=== PATIENT | female | born 1970 | race Two or more races ===

== ENCOUNTER 2024-10-16 17:55 | Inpatient (IN) | payer MEDICAID, OTHER ==
[~2024-10-16] VITALS: Ht 162.6 cm; Wt 86.0 kg
[2024-10-16 18:29] LABS: Eosinophils # (auto) 0 10 ^3/uL (0-0.8); Lymphocytes # (auto) 0.8 10 ^3/uL (0.4-5.4); Nucleated Red Blood Cells % 0.1 %
[2024-10-16 18:30] LABS: Basophils # (auto) 0 10 ^3/uL (0-0.2); Basophils % (auto) 0.4 % (0.0-2.0); Hematocrit 13.4 % (36.0-46.0); Mean Corpuscular Hemoglobin 38.7 pg (28.0-32.0); Mean Corpuscular Hgb Conc. 32.7 g/dL (32.0-36.0); Mean Corpuscular Volume 118.4 fL (80.0-100.0); Monocytes # (auto) 0.6 10 ^3/uL (0-1.3); Monocytes % (auto) 5.3 % (0.0-12.0); Neutrophils # (auto) 10.4 10 ^3/uL (1.6-8.6); Neutrophils % (auto) 87.3 % (37.0-80.0); Platelet Count (auto) 282 10^3/uL (140-450); Red Blood Cells 1.13 10^6/uL (4.0-5.20)
[2024-10-16 18:32] LABS: Red Cell Distribution Width 24.1 % (11.8-14.3)
[2024-10-16 18:35] LABS: Hemoglobin 4.4 g/dL (12.2-16.2)
[2024-10-16 18:48] LABS: Anion Gap 12 (5-15); BUN/Creatinine Ratio 9.8 (10.0-20.0); Potassium 3.7 mmol/L (3.5-5.1); Sodium 138 mmol/L (136-145)
--- NOTE | 2024-10-16 18:48 | ED.PDOC ---
History of Present Illness HPI Comments 54-year-old female came to emergency room via EMS for generalized weakness. Patient has history of liver disease, and a chronic alcohol drinker. Per EMS, patient was picked up by the hotel room, patient for the past 2 weeks has been complaining of generalized weakness. Patient was admitted at [facility] from 10/06-02/2025, noted have hemoglobin levels of 5.0, underwent blood transfusion however patient signed AMA and was unable to complete the transfusions. Patient is still complaining of generalized weakness, abdominal pain, chest pain and shortness a breath. She denies any active bleeding. Upon arrival paramedics noted patient with a blood pressure of 87/45 mmHg. Fluids were given and was brought to the ER for further evaluation. Chief Complaint: General Weakness Time Seen by MD: 18:47 Reviewed Notes: Pipe Connector Notes Allergies: Coded Allergies: Penicillins (Verified Allergy, Unknown, 10/16/24) Uncoded Allergies: ANTIBIOTICS (Allergy, Unknown, 10/16/24) Information Source: Patient, Emergency Med Personnel Mode of Arrival: EMS Severity: Moderate Timing: Days Duration: Since onset Prehospital treatment: IVF Review of Systems REVIEW OF SYSTEMS: No fever, no chills, or fatigue HEENT: No sore throat, no earache, no congestion, no neck pain. Cardiac: (+) chest pain. No palpitations. Lungs: (+) shortness of breath, no cough. GI: No nausea, no vomiting, no diarrhea, no constipation, (+) abdominal pain : No dysuria, frequency, or urgency. No hematuria. Musculoskeletal: No joint pain , no joint swelling, no extremity edema. Skin: No rash, no itching. Neuro: No headache, no dizziness, (+) weakness Vital Signs Vital Signs Date Time Temp Pulse Resp B/P (MAP) Pulse Ox O2 Delivery O2 Flow Rate FiO2 10/16/24 20:55 98.0 87 22 91/59 98.0 10/16/24 20:05 100 Room Air* 0 21 Physical Exam General: Awake, alert and oriented. No acute distress. Appears lethargic Skin: Skin is jaundiced, pale HEENT: The head is normocephalic and atraumatic. Conjunctivae are clear without exudates or hemorrhage. Sclera icteric. EOM are intact. No signs of nystagmus. Eyelids are normal in appearance without swelling or lesions. Oral mucosa is pink and moist Neck: The neck is supple with normal range of motion. No JVD. Cardiac: Heart rate and rhythm are normal. No murmurs, gallops, or rubs are auscultated. Respiratory: No signs of respiratory distress. Lung sounds are clear in all lobes bilaterally without rales, ronchi, or wheezes. Abdominal: Abdomen is soft, generally tender without distention. Bowel sounds are present and normoactive in all four quadrants. Extremities: Upper and lower extremities are atraumatic in appearance without deformity or edema. Neurological: The patient is awake, alert and oriented to person, place, and time with normal speech. Speech is clear. There is no facial asymmetry. Past Medical History PAST MEDICAL HISTORY: Liver, [place] Past Medical History (Other): COVID-19 Surgical History (Other): Gastric bypass INTERNAL AUDIT DIRECTOR History: Denies all INTERNAL AUDIT DIRECTOR Hx Family History Family History: Reviewed,noncontributory to illness Social History Smoker: Non-Smoker Alcohol: Heavy Drugs: Denies Drug Use Lives In: Homeless Was a procedure done? Was a procedure done?: No EKG EKG : Pulse Rate (adult): 87 Cardiac Rhythm: NSR Differential Dx Considerations may include: Anemia, electrolyte imbalance, weakness, liver disease, jaundice, GI bleed, sepsis, hypotension X-Ray, Labs, Meds, VS Vital Signs Date Time Temp Pulse Resp B/P (MAP) Pulse Ox O2 Delivery O2 Flow Rate FiO2 10/16/24 20:55 98.0 87 22 91/59 98.0 10/16/24 20:39 88 10/16/24 20:38 97.9 89 19 88/58 97.9 10/16/24 20:05 88 30 100 Room Air* 0 21 10/16/24 20:03 97.9 88 30 72/36 (48) 100 97.9 10/16/24 19:36 94 10/16/24 18:48 87 10/16/24 18:34 97.6 95 20 110/88 (95) 100 10/16/24 18:27 87 Lab Test 10/16/24 21:23 10/16/24 19:55 10/16/24 19:17 10/16/24 18:16 Range/Units Lactic Acid Level 10.2 *H 9.8 *H 7.1 *H 0.4-2.0 mmol/L Troponin I High Sensitivity 4 5 5 </=34 ng/L White Blood Count 12.0 H 4.4-10.8 10^3/uL Red Blood Count 1.13 L 4.0-5.20 10^6/uL Hemoglobin 4.4 *L 12.2-16.2 g/dL Hematocrit 13.4 L 36.0-46.0 % Mean Corpuscular Volume 118.4 H 80.0-100.0 fL Mean Corpuscular Hemoglobin 38.7 H 28.0-32.0 pg Mean Corpuscular Hemoglobin Concent 32.7 32.0-36.0 g/dL Red Cell Distribution Width 24.1 H 11.8-14.3 % Platelet Count 282 140-450 10^3/uL Mean Platelet Volume 7.7 6.9-10.8 fL Neutrophils (%) (Auto) 87.3 H 37.0-80.0 % Lymphocytes (%) (Auto) 7.0 L 10.0-50.0 % Monocytes (%) (Auto) 5.3 0.0-12.0 % Eosinophils (%) (Auto) 0.0 0.0-7.0 % Basophils (%) (Auto) 0.4 0.0-2.0 % Neutrophils # (Auto) 10.4 H 1.6-8.6 10 ^3/uL Lymphocytes # (Auto) 0.8 0.4-5.4 10 ^3/uL Monocytes # (Auto) 0.6 0-1.3 10 ^3/uL Eosinophils # (Auto) 0 0-0.8 10 ^3/uL Basophils # (Auto) 0 0-0.2 10 ^3/uL Nucleated Red Blood Cells 0.1 % Prothrombin Time 17.7 H 9.3-11.8 sec Prothrombin Time INR 1.74 H 0.9-1.15 Sodium Level 138 136-145 mmol/L Potassium Level 3.7 3.5-5.1 mmol/L Chloride Level 112 H 98-107 mmol/L Carbon Dioxide Level 14 L 20-31 mmol/L Anion Gap 12 5-15 Blood Urea Nitrogen 9 9-23 mg/dL Creatinine 0.92 0.550-1.02 mg/dL Glomerular Filtration Rate Calc 74 >90 mL/min BUN/Creatinine Ratio 9.8 L 10.0-20.0 Serum Glucose 198 H 74-106 mg/dL Calcium Level 7.9 L 8.7-10.4 mg/dL Total Bilirubin 9.2 H 0.2-1.0 mg/dL Aspartate Amino Transferase (AST) 108 H 13-40 U/L Alanine Aminotransferase (ALT) 51 H 7-40 U/L Alkaline Phosphatase 122 H 46-116 U/L Ammonia 15 11-32 umol/L Total Protein 4.4 L 5.7-8.2 g/dL Albumin 1.8 L 3.2-4.8 g/dL Current Medications Medications (Trade) Dose Ordered Sig/Lizette Route Start Time Stop Time Status Last Admin Sodium Chloride 1,450 ml @ 1,450 mls/hr ONCE ONCE IV 10/16/24 19:45 10/16/24 20:44 DC 10/16/24 20:56 Dexamethasone Sodium Phosphate (Decadron Injection) 10 mg ONCE ONCE IV 10/16/24 19:45 10/16/24 20:01 DC 10/16/24 20:58 Vancomycin HCl 200 ml @ 200 mls/hr ONCE ONCE IV 10/16/24 20:03 10/16/24 21:02 DC 10/16/24 20:56 Time of 1ST Reevaluation: 18:41 Reevaluation 1ST: Unchanged Patient Education/Counseling: Diagnosis, Treatment Family Education/Counseling: No Family Present Departure 1 Departure Time of Disposition: 02:00 Impression: Primary Impression: Liver cirrhosis Additional Impressions: Lactic acidemia Hypotension Severe anemia Blood transfusion during current hospitalization Disposition: ADMITTED INPATIENT Condition: Guarded Comments 54-year-old female with history of liver cirrhosis, severe anemia presents to the emergency department with severe anemia after leaving [facility] few days ago, not completing treatment. This time patient is severely anemic with a hemoglobin of 4.4. Lactic acid is elevated and patient has white blood cell count of 12. Patient reports severe allergies to all antibiotics except for azithromycin. She states she either has hives, breathing trouble, rash. Vancomycin initiated with dose of Decadron. Blood transfusion initiated in the emergency department. Blood pressure improved. CT negative for acute process, shows ongoing ascites. Chest x-ray negative for acute process. Extensive evaluation was performed in attempt to identify or rule out: (See differential diagnosis section) The following tests were ordered, and results were reviewed by me: (See diagnostic results section) The following test were independently interpreted by me: N/A I reviewed and agreed with the following test results read by other providers: N/A I reviewed the following notes from the pt's past medical encounters: (None shekhar ilable at this time) Additional information was gathered from interviewing the following independent historians: EMS Discussion of management or test interpretation with external physician/other qualified health rn urgent care: Dr. Lomax Addressed an acute or chronic illness that poses a threat to life or bodily function: severe anemia requiring blood transfusion, severe hypotension Decision regarding hospitalization or escalation of hospital level of care: Risk and benefits of admission for further treatment of patient's condition was considered. Due to patient's current clinical condition, high risk of decline and poor outcome if discharged and need for further inpatient management and monitoring, patient will be admitted to the hospital. Drug therapy requiring intensive monitoring for toxicity: Blood products, IV Levophed Parenteral controlled substances: N/A Decision regarding elective major surgery with identified patient or procedure risk factors: N/A Decision regarding emergency major surgery: N/A Decision not to resuscitate or to de-escalate care because of poor prognosis: N/A Diagnosis or treatment significantly limited by social determinants of health: History of severe alcohol abuse Critical Care Note Critical Care Time?: Yes (30 min-critical care time only) Critical care comment: Due to a high probability of clinically significant, life threatening deterioration, the patient required my highest level of preparedness to intervene emergently and I personally spent this critical care time directly and personally managing the patient. This critical care time included obtaining a history; examining the patient; pulse oximetry; ordering and review of studies; arranging urgent treatment with development of a management plan; evaluation of patient's response to treatment; frequent reassessment; and, discussions with other providers. This critical care time was performed to assess and manage the high probability of imminent, life-threatening deterioration that could result in multi-organ failure. It was exclusive of separately billable procedures and treating other patients and teaching time. Please see my other sections and the rest of the note for further information on patient assessment and treatment. Stability Stability form required: No Heart Score Heart Score: Heart Score Response (Comments) Value History Moderate Suspicious 1 EKG Normal 0 Age 45-64 1 Risk Factors 1 or 2 risk factors 1 Troponin Normal limit 0 Total 3 I personally scribed for NOLAN ESCALONA MD ([email or web address]) on 10/16/24 at 18:48. Electronically submitted by Emanuel Barrientos ([facility]). NOLAN ESCALONA MD Oct 16, 2024 18:48
[2024-10-16 18:52] LABS: Alanine Aminotransferase 51 U/L (7-40); Albumin 1.8 g/dL (3.2-4.8); Alkaline Phosphatase 122 U/L (46-116); Aspartate Aminotransferase 108 U/L (13-40); Bilirubin, Total 9.2 mg/dL (0.2-1.0); Blood Urea Nitrogen 9 mg/dL (9-23); Calcium 7.9 mg/dL (8.7-10.4); Carbon Dioxide 14 mmol/L (20-31); Chloride 112 mmol/L (98-107); Glucose 198 mg/dL (74-106); Total Protein 4.4 g/dL (5.7-8.2)
[2024-10-16 18:57] LABS: INR 1.74 (0.9-1.15); Prothrombin Time 17.7 sec (9.3-11.8)
[2024-10-16 19:09] LABS: Lactic Acid w/Reflex 7.1 mmol/L (0.4-2.0)
[2024-10-16 20:05] VITALS: PULSE 88; RESP 30; O2SAT 100
[2024-10-16] MEDS ORDERED: NOREPINEPHRINE 8 MG/250ML KIT 250 ML IV SCH (20:15)
[2024-10-16] MEDS: NOREPINEPHRINE 8 MG/250ML KIT 250 ML IV ONE (20:18)
[2024-10-16 20:38] VITALS: BP 88/58; PULSE 89; RESP 19; TEMP 97.9
[2024-10-16 20:55] VITALS: BP 91/59; PULSE 87; RESP 22; TEMP 98
[2024-10-16] MEDS: VANCOMYCIN 1GM/250ML KIT 200 ML IV ONE (20:56)
[2024-10-16] MEDS: SODIUM CHLORIDE 0.9% 1,450 ML IV ONE (20:56)
[2024-10-16] MEDS: DexAMETHasone SOD PHOS 10MG/1ML VIAL INJ IV ONE (20:58)
[2024-10-16] MEDS ORDERED: MORPHINE SULFATE INJ 2 MG/ml SYRG IV PRN (21:30)
[2024-10-16] MEDS ORDERED: DOCUSATE SOD 100 MG CAP PO PRN (21:30)
[2024-10-16] MEDS ORDERED: IBUPROFEN 400 MG TAB PO PRN (21:30)
[2024-10-16] MEDS ORDERED: NITROGLYCERIN 0.4 MG SL TAB SL PRN (21:30)
--- NOTE | 2024-10-16 21:38 | DVHHP2 ---
History of Present Illness Reason for Visit: Severe anemia History of Present Illness The patient is a 54-year-old female with past medical history of liver cirrhosis, [place], and COVID-19 who presented to [facility] ED with complaint of generalized weakness. As reported, the patient was picked up in the hotel room after 2 weeks of complaining of generalized weakness, abdominal pain, associated nausea, vomiting. Patient was recently admitted at [facility], noted to have hemoglobin level of 5.0, underwent blood transfusion, but however left AMA and was unable to complete the transfusion process. The patient was seen and evaluated in the ED, laboratory data shows WBC 12.0, hemoglobin 4.4, hematocrit 18.4, platelets 282, sodium 138, potassium 3.7, BUN 9, creatinine 0.92, GFR 74, glucose 198, ammonia 15, protein 4.4, albumin 1.8, troponin 5, calcium 7.9, total bilirubin 9.2, AST 108, ALT 51, PT 17.7, INR 1.74, blood pressure 87/45 mmHg trending up to 91/59, heart rate 88, temperature 98.0 F, O2 saturation 99% on oxygen. Abdomen/pelvis CT revealing hepatic s teatosis, small amount of pneumobilia, small amount of ascites scattered throughout the abdomen and pelvis. Patient was started on IV antibiotic regimen vancomycin, please see medication orders section in the computer. On my assessment, patient denied chest pain, no headache, no dizziness, no diaphoresis, no abdominal pain, no diarrhea, no nausea, no vomiting, no fever, no chills. Patient was admitted for further evaluation and medical management. Past Medical History Liver cirrhosis, [place], COVID-19 Past Surgical History Gastric bypass Family History Reviewed, noncontributory to the management of this case. Past Social History The patient lives at home, denies smoking, alcohol or illicit drugs abuse. Review of Systems Constitutional: Yes: Weakness, Malaise, Other (Fatigue); No: Fever, Chills, Sweats Eyes: No: Pain, Vision change, Conjunctivae inflammation, Eyelid inflammation, Other, Redness ENT: No: Ear pain, Ear discharge, Nose pain, Nose discharge, Nose congestion, Mouth pain, Mouth swelling, Throat pain, Throat swelling, Other Respiratory: No: Cough, Dry, Shortness of breath, SOB with excertion, Wheezing, Hemoptysis, Pleuritic Pain, Sputum, Wheezing, Other Cardiovascular: No: Chest Pain, Palpitations, Orthopnea, Paroxysmal Noc. Dyspn ea, Edema, Lt Headedness, Other Gastrointestinal: Nausea, Vomiting, Abdominal Pain; No: Diarrhea, Constipation, Melena, Hematochezia, Other Genitourinary: No Dysuria, No Frequency, No Incontinence, No Hematuria, No Retention, No Other Musculoskeletal: No: other, neck pain, shoulder pain, arm pain, back pain, hand pain, leg pain, foot pain Skin: No: Rash, Lesions, Jaundice, Bruising, Other Neurological: Weakness; No: Numbness, Incoordination, Change in speech, Confusion, Seizures, Other Allergies: Coded Allergies: Penicillins (Verified Allergy, Unknown, 10/16/24) Uncoded Allergies: ANTIBIOTICS (Allergy, Unknown, 10/16/24) Medications Current Medications Medications Dose Ordered Sig/Lizette Route Start Time Stop Time Status Last Admin Dose Admin Vancomycin HCl 200 ml @ 200 mls/hr Q12HR IV 10/16/24 22:00 UNV Exam Vital Signs Vital Signs Date Time Temp Pulse Resp B/P (MAP) Pulse Ox O2 Delivery O2 Flow Rate FiO2 10/16/24 20:55 98.0 87 22 91/59 98.0 10/16/24 18:34 100 General Appearance: Alert, Oriented X3, Cooperative, No acute distress HEENT: Atraumatic, PERRLA, EOMI, Mucous membr. moist/pink Respiratory: Normal air movement, Other (Diminished breath sounds) Cardiovascular: Regular rate, Normal S1, Normal S2, No murmurs Abdominal: Normal bowel sounds, Soft, No hepatospenomegaly, No masses, Other (Reports tenderness) Extremities: No clubbing, No cyanosis, No edema, Normal pulses, No tenderness/swelling Skin: No rashes, No breakdown, No significant lesion Neuro: Normal speech, Normal tone, Sensation intact, Cranial nerves 3-12 NL, Reflexes 2+, Other (Generalized weakness) Psych/Mental Status: Mental status NL, Mood NL Labs/Xrays Labs Test 10/16/24 21:23 10/16/24 18:16 Range/Units White Blood Count 12.0 H 4.4-10.8 10^3/uL Red Blood Count 1.13 L 4.0-5.20 10^6/uL Hemoglobin 4.4 *L 12.2-16.2 g/dL Hematocrit 13.4 L 36.0-46.0 % Mean Corpuscular Volume 118.4 H 80.0-100.0 fL Mean Corpuscular Hemoglobin 38.7 H 28.0-32.0 pg Mean Corpuscular Hemoglobin Concent 32.7 32.0-36.0 g/dL Red Cell Distribution Width 24.1 H 11.8-14.3 % Platelet Count 282 140-450 10^3/uL Mean Platelet Volume 7.7 6.9-10.8 fL Neutrophils (%) (Auto) 87.3 H 37.0-80.0 % Lymphocytes (%) (Auto) 7.0 L 10.0-50.0 % Monocytes (%) (Auto) 5.3 0.0-12.0 % Eosinophils (%) (Auto) 0.0 0.0-7.0 % Basophils (%) (Auto) 0.4 0.0-2.0 % Neutrophils # (Auto) 10.4 H 1.6-8.6 10 ^3/uL Lymphocytes # (Auto) 0.8 0.4-5.4 10 ^3/uL Monocytes # (Auto) 0.6 0-1.3 10 ^3/uL Eosinophils # (Auto) 0 0-0.8 10 ^3/uL Basophils # (Auto) 0 0-0.2 10 ^3/uL Nucleated Red Blood Cells 0.1 % Prothrombin Time 17.7 H 9.3-11.8 sec Prothrombin Time INR 1.74 H 0.9-1.15 Sodium Level 138 136-145 mmol/L Potassium Level 3.7 3.5-5.1 mmol/L Chloride Level 112 H 98-107 mmol/L Carbon Dioxide Level 14 L 20-31 mmol/L Anion Gap 12 5-15 Blood Urea Nitrogen 9 9-23 mg/dL Creatinine 0.92 0.550-1.02 mg/dL Glomerular Filtration Rate Calc 74 >90 mL/min BUN/Creatinine Ratio 9.8 L 10.0-20.0 Serum Glucose 198 H 74-106 mg/dL Calcium Level 7.9 L 8.7-10.4 mg/dL Total Bilirubin 9.2 H 0.2-1.0 mg/dL Aspartate Amino Transferase (AST) 108 H 13-40 U/L Alanine Aminotransferase (ALT) 51 H 7-40 U/L Alkaline Phosphatase 122 H 46-116 U/L Ammonia 15 11-32 umol/L Total Protein 4.4 L 5.7-8.2 g/dL Albumin 1.8 L 3.2-4.8 g/dL PATIENT: KARIN COWANCCT: [id number] UNIT: [id number] : 1970 LOC: TELE ROOM / BED: [address] [place] [address] AGE / SEX: 54 / F ADM STATUS: ADM IN SERVICE 1827 ORDERING PHYSICIAN: NOLAN ESCALONA MD PROCEDURE(s): ABPL - CT AB PEL WO CON-NO ORAL OR IV REASON: abdominal pain, jaundice, hx of liver cirrhosis ORDER NUMBER(s): [id number], ACCESSION NUMBER(s): [id number] Exam: CT CT AB PEL WO CON-NO ORAL OR IV History: abdominal pain, jaundice, hx of liver cirrhosis Comparison Study: None available at time of dictation. TECHNIQUE: Multidetector CT of the abdomen was performed from lung bases to pubic symphysis. Imaging was performed without IV contrast. Axial, coronal and sagittal multiplanar reformats were obtained from the axial data set by the technologist. Radiation Dose Information: CT Dose: CTDI volume is 13.45 mGy. Dose-length product is 824.26 mGy*cm FINDINGS: Evaluation of solid organs is limited due to lack of intravenous contrast use. Findings: Lung Bases: No acute or significant lung base finding. Normal heart size. No pleural or pericardial effusion. Liver: Hepatic steatosis. Hepatomegaly with the liver measuring 24 cm in length. Gallbladder and Biliary Tree: Gallbladder is been surgically removed. Spleen: Unremarkable Pancreas: The pancreas is grossly normal in appearance. Adrenal Glands: Unremarkable Kidneys: Kidneys are grossly normal without calculi or hydronephrosis. Bladder: Grossly unremarkable for degree of distention. Bowel: The stomach is grossly normal in appearance. Small hiatal hernia. Small bowel and colon are normal in caliber and distribution. The appendix is not visualized; however, no secondary findings of acute appendicitis identified. Ascites: Small amount of ascites. Lymphadenopathy: No mesenteric, retroperitoneal or periportal lymphadenopathy. Abdominal Wall and Mesentery: Unremarkable. Vasculature: The visualized abdominal aorta is normal in size and caliber. Evaluation of abdominal and pelvic vessels is limited due to lack of intravenous contrast. Pelvic Organs: Unremarkable Musculoskeletal: No aggressive focal bony lesions, acute fractures or dislocation. Left femoral prosthesis in place Soft tissues: Unremarkable IMPRESSION: 1. Hepatic steatosis 2. Gallbladder has been surgically removed. 3. Small amount of pneumobilia. 4. Small amount of ascites scattered throughout the abdomen and pelvis. ORDERING PHYSICIAN: JAMES DAMON MD PROCEDURE(s): CXRP - CHEST PORTABLE REASON: CP ORDER NUMBER(s): [id number], ACCESSION NUMBER(s): [id number] CHEST RADIOGRAPH Indication: CP Technique: Single frontal view of the chest was obtained COMPARISON: None FINDINGS: Lines and Tubes: None Lungs: Clear Pleura: No effusion. No pneumothorax. Cardiomediastinal contours: Unremarkable Bones: Unremarkable IMPRESSION: 1. No acute disease. Assessment/Plan Assessment/Plan Liver cirrhosis Hyperglycemia Sepsis, unspecified organism Severe anemia Generalized weakness Electrolyte imbalance Blood transfusion during current hospitalization Plan 1. Admit to intensive care unit 2. Breathing treatment 3. Pain control management 4. IV antibiotic management 5. Management of fluids and electrolytes 6. Consultation for Cardiology/GI 7. Diagnostic test abdomen/pelvis CT 8. DVT prophylaxis-on SCDs 9. Repeat labs CBC, CMP in a.m. 10. Home medication reviewed and reconciled 11. Continue with current medical management 12. Treatment plan discussed with patient and RN. Patient verbalized understanding. Plan discussed with: Patient, Other (RN) Problem List: (1) Liver cirrhosis (2) Severe anemia (3) Hyperglycemia (4) Sepsis, unspecified organism (5) Electrolyte imbalance (6) Generalized weakness (7) Blood transfusion during current hospitalization Date of Service: Oct 16, 2024 Billing Provider: HERBERTH LANE DNP Common Visit Codes: [id number] INP/OBS CARE (HIGH) HERBERTH LANE DNP Oct 16, 2024 21:38
[2024-10-16] MEDS: LACTULOSE 20Gm/30ML SOLN PO SCH (22:00)
[2024-10-16] MEDS ORDERED: VANCOMYCIN 1GM/250ML KIT 200 ML IV SCH (22:00)
[2024-10-16] MEDS: ACCU-CHEK COMFORT CURVE STRIP VI SCH (22:00)
[2024-10-16] MEDS: InsuLIN REG 1unit/0.01ml Soln (100units/ml) SC SCH (22:00)
[2024-10-16] MEDS: PANTOPRAZOLE 40 MG/10 ML VIAL INJ IV SCH (22:00)
[2024-10-16 22:03] LABS: Lactic Acid w/Reflex 10.2 mmol/L (0.4-2.0)
[2024-10-16] MEDS: ALBUMIN 25% 100 ML IV ONE (22:05)
--- NOTE | 2024-10-16 22:14 | DVH ---
CHEST RADIOGRAPH Indication: CP Technique: Single frontal view of the chest was obtained COMPARISON: None FINDINGS: Lines and Tubes: None Lungs: Clear Pleura: No effusion. No pneumothorax. Cardiomediastinal contours: Unremarkable Bones: Unremarkable IMPRESSION: 1. No acute disease.
--- NOTE | 2024-10-16 22:20 | DVH ---
Exam: CT CT AB PEL WO CON-NO ORAL OR IV History: abdominal pain, jaundice, hx of liver cirrhosis Comparison Study: None available at time of dictation. TECHNIQUE: Multidetector CT of the abdomen was performed from lung bases to pubic symphysis. Imaging was performed without IV contrast. Axial, coronal and sagittal multiplanar reformats were obtained fr om the axial data set by the technologist. Radiation Dose Information: CT Dose: CTDI volume is 13.45 mGy. Dose-length product is 824.26 mGy*cm FINDINGS: Evaluation of solid organs is limited due to lack of intravenous contrast use. Findings: Lung Bases: No acute or significant lung base finding. Normal heart size. No pleural or pericardial effusion. Liver: Hepatic steatosis. Hepatomegaly with the liver measuring 24 cm in length. Gallbladder and Biliary Tree: Gallbladder is been surgically removed. Spleen: Unremarkable Pancreas: The pancreas is grossly normal in appearance. Adrenal Glands: Unremarkable Kidneys: Kidneys are grossly normal without calculi or hydronephrosis. Bladder: Grossly unremarkable for degree of distention. Bowel: The stomach is grossly normal in appearance. Small hiatal hernia. Small bowel and colon are no rmal in caliber and distribution. The appendix is not visualized; however, no secondary findings of acute appendicitis identified. Ascites: Small amount of ascites. Lymphadenopathy: No mesenteric, retroperitoneal or periportal lymphadenopathy. Abdominal Wall and Mesentery: Unremarkable. Vasculature: The visualized abdominal aorta is normal in size and caliber. Evaluation of abdominal a nd pelvic vessels is limited due to lack of intravenous contrast. Pelvic Organs: Unremarkable Musculoskeletal: No aggressive focal bony lesions, acute fractures or dislocation. Left femoral prost hesis in place Soft tissues: Unremarkable IMPRESSION: 1. Hepatic steatosis 2. Gallbladder has been surgically removed. 3. Small amount of pneumobilia. 4. Small amount of ascites scattered throughout the abdomen and pelvis. Radiation optimization: All CT scans at this facility use at least one of these dose optimization te chniques: automated exposure control mA and/or kV adjustment per patient size (includes targeted exa ms where dose is matched to clinical indication) or iterative reconstruction.
[2024-10-16 22:53] VITALS: BP 105/68; PULSE 93; RESP 21; TEMP 97
[2024-10-16 23:15] VITALS: BP 101/57; PULSE 94; RESP 33; TEMP 97.1
[2024-10-16] MEDS: SODIUM CHLORIDE 0.9% 1,000 ML IV SCH (23:23)
[2024-10-16] MEDS: ONDANSETRON HCL 4 MG/2 ML VIAL IV PRN (23:47)
[2024-10-17] VITALS (81 sets, daily range): BP systolic 62–205; BP diastolic 21–177; PULSE 74–111; RESP 11–30; TEMP 89–98.1; O2SAT 30–100
[2024-10-17] MEDS: HYDROcodone-ACET 5/325MG TAB PO PRN (00:21)
[2024-10-17] MEDS: MORPHINE SULFATE INJ 2 MG/ml SYRG IV PRN (01:55)
[2024-10-17] MEDS ORDERED: ALBUTEROL SULF 2.5 MG/0.5ML(0.5%) NEB SOLN NEB PRN (02:00)
[2024-10-17] MEDS ORDERED: IPRATROPIUM BROM 0.5 MG/2.5ML INH SOL NEB PRN (02:00)
[2024-10-17] MEDS: ALBUTEROL SULF 2.5 MG/0.5ML(0.5%) NEB SOLN ONE (02:20)
[2024-10-17] MEDS: IPRATROPIUM BROM 0.5 MG/2.5ML INH SOL ONE (02:20)
[2024-10-17] MEDS: SODIUM BICARB 8.4% 50Meq/50ml SYR Vial IV ONE ×4 (03:12→23:29)
[2024-10-17 04:35] LABS: Basophils % (auto) 0.3 % (0.0-2.0); Eosinophils # (auto) 0 10 ^3/uL (0-0.8); Eosinophils % (auto) 0.1 % (0.0-7.0); Hematocrit 16.6 % (36.0-46.0); Lymphocytes # (auto) 1.5 10 ^3/uL (0.4-5.4); Monocytes # (auto) 0.8 10 ^3/uL (0-1.3); White Blood Cell 14.8 10^3/uL (4.4-10.8)
[2024-10-17 04:38] LABS: Basophils # (auto) 0.1 10 ^3/uL (0-0.2); Lymphocytes % (auto) 10.2 % (10.0-50.0); Mean Corpuscular Hemoglobin 33.9 pg (28.0-32.0); Mean Corpuscular Hgb Conc. 33.1 g/dL (32.0-36.0); Mean Corpuscular Volume 102.4 fL (80.0-100.0); Monocytes % (auto) 5.7 % (0.0-12.0); Neutrophils # (auto) 12.4 10 ^3/uL (1.6-8.6); Neutrophils % (auto) 83.7 % (37.0-80.0); Platelet Count (auto) 184 10^3/uL (140-450); Red Blood Cells 1.62 10^6/uL (4.0-5.20); Red Cell Distribution Width 19.2 % (11.8-14.3)
[2024-10-17] MEDS: NOREPINEPHRINE 8 MG/250ML KIT 250 ML IV SCH (04:42)
[2024-10-17 04:48] LABS: Hemoglobin 5.5 g/dL (12.2-16.2)
[2024-10-17 04:51] LABS: Alkaline Phosphatase 78 U/L (46-116); Anion Gap 23.00001 (5-15); Blood Urea Nitrogen 10 mg/dL (9-23); Potassium 3.9 mmol/L (3.5-5.1)
[2024-10-17 04:53] LABS: BUN/Creatinine Ratio 8.7 (10.0-20.0)
[2024-10-17 04:55] LABS: Alanine Aminotransferase 61 U/L (7-40); Albumin 1.8 g/dL (3.2-4.8); Aspartate Aminotransferase 230 U/L (13-40); Bilirubin, Total 9.9 mg/dL (0.2-1.0); Calcium 8.5 mg/dL (8.7-10.4); Chloride 112 mmol/L (98-107); Glucose 176 mg/dL (74-106); Sodium 145 mmol/L (136-145); Total Protein 3.8 g/dL (5.7-8.2)
[2024-10-17] MEDS ORDERED: NOREPINEPHRINE 8 MG/250ML KIT 250 ML IV SCH (05:00)
[2024-10-17 05:53] LABS: Carbon Dioxide < 10 mmol/L (20-31)
[2024-10-17 06:57] LABS: Macrocytosis Slight; Platelet Estimate Adequate
[2024-10-17] MEDS: DexAMETHasone SOD PHOS 10MG/1ML VIAL INJ IV SCH (10:00)
[2024-10-17] MEDS ORDERED: levoFLOXacin 500MG 100 ML IV SCH (10:00)
[2024-10-17] MEDS: EPINEPHrine HCL 1 MG/10 ML SYRG ONE (10:14)
[2024-10-17] MEDS: ETOMIDATE (2MG/ML) 20ML VIAL IV ONE ×2 (10:40→11:03)
[2024-10-17] MEDS: ROCURONIUM 10MG/ML 10ML VIAL IV ONE ×2 (10:42→11:04)
[2024-10-17] MEDS: EPINEPHrine HCL 1 MG/10 ML SYRG IV ONE (10:45)
[2024-10-17] MEDS: fentaNYL Drip 2500mCg/250mlNS 250 ML IV ONE (10:51)
--- NOTE | 2024-10-17 11:44 | DVH ---
CHEST RADIOGRAPH Indication: POST INTUBATION Technique: Single frontal view of the chest was obtained COMPARISON: XY CHEST PORTABLE on DOS: 10/16/24 FINDINGS: Lines and Tubes: Endotracheal tube in satisfactory position. Lungs: Low lung volumes. Bibasilar subsegmental atelectasis. Pleura: No effusion. No pneumothorax. Cardiomediastinal contours: Cardiomegaly Bones: Unremarkable IMPRESSION: Endotracheal tube in satisfactory position.
[2024-10-17] MEDS: fentaNYL Drip 2500mCg/250mlNS 250 ML IV SCH (12:19)
[2024-10-17] MEDS: VASOPRESSIN 20 UNITS in SODIUM CHL 0.9% 99 ML IV SCH (12:54)
[2024-10-17] MEDS: SODIUM CHLORIDE 0.9% 1,000 ML IV ONE (13:00)
[2024-10-17] MEDS ORDERED: VANCOMYCIN PER PHARMACY 0 MG IV SCH (13:00)
[2024-10-17 13:36] LABS: Base Excess -26.8 mmol/L (-2.0-3.0)
--- NOTE | 2024-10-17 13:42 | DVHNC2 ---
Arterial Puncture Indication: Assess ventilatory status, Assess acid-base status Procedure: Sterile Preparation, Arterial Punct Obtained Location: Left Radial Notes LEFT Radial ARTERIAL LINE PLACEMENT Recorder of insertion practice: Methane Gas Collection System Operator Occupation of operations associate: Other (Resident physician) Indication: Hypotension Room prepared for procedure: Yes Methane Gas Collection System Operator performed hand hygien: Yes Maximal sterile barrier precau: Mask/Eye shield, Sterile gown, Cap, Sterlie gloves, Large sterlie drape Skin Preparation: Chlorhexidine gluconate Skin preparation completely dr: Yes Arterial line site: Left Radial PROCEDURE SUMMARY: A time out was performed. hands were washed immediately prior to the procedure. we wore a surgical cap, mask with protective eyewear, sterile gown and sterile gloves throughout the procedure. Right groin was prepped using chlorhexidine scrub and draped in sterile fashion using sterile towels. The left radial artery was identified through the ultrasound. With the help of ultrasound, a radial catheter needle was inserted into the radial artery, which was visualized on ultrasound. Arterial blood was seen in the radial catheter. needle was kept in place and The guidewire was advanced easily into the Left radial artery. radial artery catheter was disconnected and was then advanced over the wire and wire were withdrawn. Catheter was then connected to the the tubing. The catheter was sutured in place. A sterile dressing was placed over the catheter at the insertion site. At the time of procedure completion, the cathet er was connected to the cafeteria monitor and calibrated. Appropriate waveform and blood pressure tracing was observed. Romaine Morejon Resident Danette Todd MD Intubation Indication: Respiratory Insufficiency (increased work of breathing) Prep: Preoxygenation Pretreated with: Other (Etomidate, rocuronium) Intubation Approach: Orotracheal Intubation size: cm (7.5) Notes Endotracheal Intubation Procedure Note INDICATION: Tachypnea, respiratory failure PROCEDURE SUMMARY: A time out was performed. My hands were washed immediately prior to the procedure. I wore a surgical cap, mask with protective eyewear, gown and gloves throughout the procedure. The patient was placed on a cafeteria monitor including continuous pulse oximetry. Rapid Sequence Intubation was conducted. The patient received etomidate for induction and rocuronium for adequate paralysis. Cricoid pressure was maintained from time induction agent was given to time of cuff balloon inflation. Using a video laryngoscope and an endotracheal tube with stylet, the patient was intubated on the first attempt. The stylet was removed and cuff balloon was inflated. Appropriate endotracheal tube position was confirmed by direct visualization of vocal cord passage, fogging of the tube, CO2 colormetric indicator and symmetric breath sounds. Post intubation chest x- ray is pending at this time. Romaine Morejon Resident Danette Todd MD Date of Service: Oct 17, 2024 Billing Provider: DANETTE TODD MD Common Visit Codes: PROCEDURE ONLY Procedure Codes: 32310-BQPKTASPCJ, [id number] LINE ROMAINE MOREJON Oct 17, 2024 13:42
[2024-10-17 14:05] LABS: Hematocrit 20.4 % (36.0-46.0)
[2024-10-17 14:06] LABS: Mean Corpuscular Hemoglobin 32.3 pg (28.0-32.0); Mean Corpuscular Hgb Conc. 31.9 g/dL (32.0-36.0); Mean Corpuscular Volume 101.4 fL (80.0-100.0); Platelet Count (auto) 179 10^3/uL (140-450); Red Blood Cells 2.01 10^6/uL (4.0-5.20); Red Cell Distribution Width 16.1 % (11.8-14.3); White Blood Cell 25.1 10^3/uL (4.4-10.8)
[2024-10-17] MEDS: HYDROCORTISONE SOD SUCC 100 MG/2ML INJ VIAL IV ONE (14:06)
[2024-10-17] MEDS: MEROPENEM 1GM IVPB 50 ML IV SCH (14:24)
[2024-10-17 14:35] LABS: Hemoglobin 6.5 g/dL (12.2-16.2)
[2024-10-17 14:36] LABS: Basophils % (manual) 0 (0.0-2.0); Blast Cells 0; Eosinophils % (manual) 0 (0-7); Metamyelocytes % 0; Myelocytes % 0; Promyelocytes % 0; Reactive Lymphocytes 0
--- NOTE | 2024-10-17 14:45 | DVHINCON2 ---
Date of service: Oct 17, 2024 Referring Physician Reason for Consultation Liver cirrhosis end-stage renal failure and severe transaminitis severe anemia possible GI bleed History of Present Illness This 53-year-old female with a history of liver cirrhosis from alcoholic liver disease COVID-19 presented to emergency room with complaints of severe weakness and tiredness had some associated nausea vomiting and even some hematemesis. She was found to have a hemoglobin of 5 g in [facility] recently had underwent blood transfusion but left AMA without completing the transfusion In the ER here the hemoglobin was found to be 4.4 with bilirubin of 9.2 and enzymes all increased. Patient is intubated now and getting the IV line abdomen and pelvis CT shows hepatic steatosis and ascites with possible mild anasarca. Patient has been on antibiotic treatment for possible SBP Patient also has got history of gastric bypass. Since intubated patient unable to get the details except from the the medical record Past Medical History Liver cirrhosis SD COVID-19 alcoholic liver disease Past Surgical History Gastric bypass Family History Noncontributory Social History Unable to get details Allergies: Coded Allergies: Penicillins (Verified Allergy, Unknown, 10/16/24) Uncoded Allergies: ANTIBIOTICS (Allergy, Unknown, 10/16/24) Current Medications Current Medications Medications (Trade) Dose Ordered Sig/Lizette Route PRN Reason Start Time Stop Time Status Last Admin Vancomycin HCl 200 ml @ 200 mls/hr Q12HR IV 10/16/24 22:00 10/17/24 13:19 DC Norepinephrine Bitartrate 250 ml @ 3.75 mls/hr Q24H IV 10/16/24 20:15 10/16/24 21:37 DC Lactulose 30 ml BID PO 10/16/24 22:00 10/16/24 22:00 Ibuprofen (Motrin Tablet) 400 mg Q6HP PRN PO PAIN SCALE 1-3 OR TEMP>100.4 10/16/24 21:30 Dexamethasone Sodium Phosphate (Decadron Injection) 6 mg DAILY IV 10/17/24 10:00 Hold Levofloxacin/ Dextrose 100 ml @ 100 mls/hr DAILY IV 10/17/24 10:00 Hold Pantoprazole Sodium (Protonix) 40 mg BID IV 10/16/24 22:00 10/17/24 13:50 Diagnostic Test (Pha) (Accu-Chek Comfort Curve T) 1 strip ACHS 10/16/24 22:00 10/17/24 13:50 Insulin Human Regular (InsuLIN R) ACHS SC 10/16/24 22:00 10/16/24 22:00 Dextrose 50 ml UD PRN IV Blood Sugar LESS THAN 60 10/16/24 21:30 Sodium Chloride 1,000 ml @ 60 mls/hr [id number] IV 10/16/24 21:30 10/16/24 23:23 Acetaminophen/ Hydrocodone Bitart ([place] 5/325MG Tab) 1 tab Q4HP PRN PO MODERATE PAIN (4-6 PAIN SCALE) 10/16/24 21:30 Ondansetron HCl (Zofran) 4 mg Q4HP PRN IV NAUSEA / VOMITING 10/16/24 21:30 10/16/24 23:47 Docusate Sodium (Colace Capsule) 100 mg BIDPRN PRN PO FOR CONSTIPATION 10/16/24 21:30 Nitroglycerin (Ntrostat Sublingual) 0.4 mg Q5MINP PRN SL FOR CHEST PAIN 10/16/24 21:30 Morphine Sulfate 2 mg Q30M PRN IV FOR CHEST PAIN 10/16/24 21:30 Morphine Sulfate 1 mg Q4HP PRN IV SEVERE PAIN (7-10 PAIN SCALE) 10/17/24 01:45 10/17/24 01:55 Albuterol (Ventolin Medneb) 2.5 mg Q4HPRN PRN NEB SHORTNESS OF BREATH 10/17/24 02:00 Ipratropium [place] (Atrovent Medneb) 0.5 mg Q4HPRN PRN NEB SHORTNESS OF BREATH 10/17/24 02:00 Norepinephrine Bitartrate 250 ml @ 3.75 mls/hr Q24H IV 10/17/24 04:45 10/17/24 12:33 DC 10/17/24 12:02 Norepinephrine Bitartrate 250 ml @ 3.75 mls/hr Q24H IV 10/17/24 05:00 10/17/24 04:52 DC Vasopressin 20 units/Sodium Chloride 100 ml @ 9 mls/hr Q11H7M IV 10/17/24 11:45 10/17/24 12:54 Fentanyl Citrate 250 ml @ 2.5 mls/hr Q24H IV 10/17/24 12:15 10/17/24 12:19 Hydrocortisone Sodium Succinate (Solu-CORTEF INJECTION) 50 mg Q6HR IV 10/17/24 18:00 Norepinephrine Bitartrate 32 mg/ Sodium Chloride 250 ml @ 0.938 mls/ hr Q24H IV 10/17/24 12:15 Octreotide Acetate 500 mcg/ Sodium Chloride 100 ml @ 10 mls/hr Q10H IV 10/17/24 13:00 Meropenem 50 ml @ 17 mls/hr Q8HR IV 10/17/24 14:00 10/17/24 14:24 Vancomycin HCl 0 ml @ 0 mls/hr UD IV 10/17/24 13:00 Vital Signs Vital Signs Date Time Temp Pulse Resp B/P (MAP) Pulse Ox O2 Delivery O2 Flow Rate FiO2 10/17/24 13:43 94 24 118/76 (90) 100 30 10/17/24 12:00 98.1 98.1 10/17/24 05:34 Nasal Cannula 6.0 Physical Exam Originally built and nourished female who looks icteric and is intubated and unresponsive on vasopressors as well as octreotide drip and PPIs She looks extremely pale and icteric Lungs clear Cardiovascular tachycardic Abdomen soft but fullness no rigidity no guarding Extremities edema Patient is intubated now and unresponsive Labs/Diagnostic Data Labs Test 10/17/24 13:54 10/17/24 13:15 10/17/24 12:06 10/17/24 03:59 Range/Units POC Glucose 67 L 70-106 mg/dl White Blood Count 25.1 #H 4.4-10.8 10^3/uL Red Blood Count 2.01 L 4.0-5.20 10^6/uL Hemoglobin 6.5 #*L 12.2-16.2 g/dL Hematocrit 20.4 #L 36.0-46.0 % Mean Corpuscular Volume 101.4 H 80.0-100.0 fL Mean Corpuscular Hemoglobin 32.3 H 28.0-32.0 pg Mean Corpuscular Hemoglobin Concent 31.9 L 32.0-36.0 g/dL Red Cell Distribution Width 16.1 H 11.8-14.3 % Platelet Count 179 140-450 10^3/uL Mean Platelet Volume 8.4 6.9-10.8 fL Neutrophils (%) (Auto) 37.0-80.0 % Lymphocytes (%) (Auto) 10.0-50.0 % Monocytes (%) (Auto) 0.0-12.0 % Basophils (%) (Auto) 0.0-2.0 % Neutrophils # (Auto) 1.6-8.6 10 ^3/uL Lymphocytes # (Auto) 0.4-5.4 10 ^3/uL Monocytes # (Auto) 0-1.3 10 ^3/uL Blood Gas Specimen Type Arterial Blood Gas Sample Site Left radial Blood Gas Patient Temperature 37.0 Arterial Blood Date Drawn [id number] Arterial Blood pH 6.874 *L 7.350-7.450 Arterial Blood Partial Pressure CO2 26.6 L 32.0-45.0 mmHg Arterial Blood Partial Pressure O2 302.8 *H 83.0-108.0 mmHg Arterial Blood HCO3 4.8 L 21.0-28.0 mmol/L Arterial Blood Oxygen Saturation 99.3 H 94.0-98.0 % Arterial Blood Base Excess -26.8 L -2.0-3.0 mmol/L Arterial Blood Oxyhemoglobin 97.8 94.0-98.0 % Arterial Blood Carboxyhemoglobin 0.5 0.5-1.5 % Arterial Blood Methemoglobin 1.0 0.0-1.5 % [place] Test Modified Blood Gas Total Hemoglobin 8.50 L 12.0-16.0 g/dL Blood Gas Set Respiration Rate 16.0 Blood Gas Modality Vent - ac FiO2 % 100.0 Blood Gas Tidal Volume 450.0 Blood Gas PEEP or CPAP 5.0 Blood Gas Critical Value Read Back Yes Blood Gas Notified Whom Rula elaine md Blood Gas Notified Time [id number] Blood Gas Notified By [employer] Worker alicja carrera Eosinophils (%) (Auto) 0.1 0.0-7.0 % Eosinophils # (Auto) 0 0-0.8 10 ^3/uL Basophils # (Auto) 0.1 0-0.2 10 ^3/uL Nucleated Red Blood Cells 0.0 % Macrocytosis Slight [place] Cells Moderate Test 10/17/24 02:16 10/17/24 01:12 10/16/24 21:23 10/16/24 18:16 Range/Units Hemoglobin A1c < 3.8 <5.7 % A1C Stool Occult Blood Sample #3 Negative Negative Troponin I High Sensitivity 4 </=34 ng/L Prothrombin Time 17.7 H 9.3-11.8 sec Prothrombin Time INR 1.74 H 0.9-1.15 Ammonia 15 11-32 umol/L Assessment [age]-year-old with end-stage liver disease with cirrhosis SD history of GI bleeding possibly with severe anemia hemoglobin was 5 refused transfusion in [facility] came here with a low hemoglobin of 4.4 patient is intubated now with nausea vomiting as well as hemato possibly hematemesis. Hemoglobin is 6.6 times is extremely icteric bilirubin of 9.9 liver enzymes arehigh WBCs [id number] Clinical impression Stage liver disease with GI bleeding possible varices status post gastric bypass with severe anemia and hyperbilirubinemia with transaminitis Patient is status post gastric bypass Possible GI bleeding from varices to be considered Possible end-stage liver disease Possible sepsis possible SBP Possible hepatic failure Plan/Recommendation We will treat with octreotide and PPIs and antibiotics Follow LFTs closely Ammonia level Treat conservatively Patient is too sick for any interventions at this time Overall prognosis extremely guarded Thank you Dr. Gonzalez Plan discussed with: Other YANET GONZALEZ MD Oct 17, 2024 14:45
[2024-10-17 14:49] LABS: Alkaline Phosphatase 80 U/L (46-116); Anion Gap 27.00001 (5-15); Blood Urea Nitrogen 11 mg/dL (9-23); Glucose 79 mg/dL (74-106); Potassium 4.4 mmol/L (3.5-5.1)
[2024-10-17 14:55] LABS: Anisocytosis Slight; Band Neutrophils % (manual) 8; Chloride 114 mmol/L (98-107); Lymphocytes % (manual) 14 (10.0-50.0); Macrocytosis Slight; Monocytes % (manual) 4 (0-12); Sodium 151 mmol/L (136-145)
[2024-10-17 14:56] LABS: Alanine Aminotransferase 207 U/L (7-40); Albumin 1.7 g/dL (3.2-4.8); Bilirubin, Total 10.6 mg/dL (0.2-1.0); Calcium 8.2 mg/dL (8.7-10.4); Carbon Dioxide < 10 mmol/L (20-31); Creatine Kinase IFCC 653 U/L (34-145); Platelet Estimate Adequate; Total Protein 3.7 g/dL (5.7-8.2)
[2024-10-17] MEDS: OCTREOTIDE ACETATE 500 MCG in SODIUM CHL 0.9% 99 ML IV SCH (14:56)
[2024-10-17] MEDS ORDERED: VANCOMYCIN 1GM/250ML KIT 250 ML IV SCH (15:00)
[2024-10-17 15:04] LABS: Aspartate Aminotransferase 1169 U/L (13-40)
[2024-10-17] MEDS: DEXTROSE (50%) 50ML SYRG IV PRN (15:14)
[2024-10-17] MEDS: SODIUM BICARB 50mEq/50ml Vial 150 ML in D5W 5% 1,000 ML IV SCH ×2 (16:15→21:19)
[2024-10-17] MEDS: NOREPINEPHRINE BITARTRATE 32 MG in SODIUM CHL 0.9% 218 ML IV SCH (16:19)
[2024-10-17 16:21] LABS: BUN/Creatinine Ratio 7.7 (10.0-20.0)
[2024-10-17 16:39] LABS: Base Excess -23.1 mmol/L (-2.0-3.0)
--- NOTE | 2024-10-17 16:41 | DVH ---
CHEST RADIOGRAPH Indication: NASOGASTRIC TUBE PLACEMENT Technique: Single frontal view of the chest was obtained Comparison: XY CHEST XRAY 1 VIEW on DOS: 10/17/24, XY CHEST PORTABLE on DOS: 10/16/24 FINDINGS: Lines and Tubes: Endotracheal tube in place 4.3 cm above the misael. Right internal jugular catheter in place in superior vena cava. Lungs: No focal consolidation. Pleura: No effusion. No pneumothorax. Cardiomediastinal contours: Unremarkable Bones: No acute osseous abnormality. IMPRESSION: 1. Enteric tube 2. Right internal jugular catheter in the superior vena cava. 3. Enteric tube noted in the lower thoracic region but not visible below the diaphragm despite alteri ng windows recommend KUB. 4. Poor inspiratory effort with elevation of both diaphragms
[2024-10-17 16:54] LABS: Lactic Acid w/Reflex 15.5 mmol/L (0.4-2.0)
[2024-10-17 17:39] LABS: Potassium 4.5 mmol/L (3.5-5.1)
[2024-10-17 17:40] LABS: Anion Gap 25.00001 (5-15); Chloride 115 mmol/L (98-107); Sodium 150 mmol/L (136-145)
[2024-10-17 17:42] LABS: Calcium 7.8 mg/dL (8.7-10.4); Carbon Dioxide < 10 mmol/L (20-31)
[2024-10-17 17:45] LABS: Blood Urea Nitrogen 12 mg/dL (9-23)
[2024-10-17 17:49] LABS: Glucose 176 mg/dL (74-106)
[2024-10-17] MEDS: VANCOMYCIN 1.25GM/250ML 250 ML IV SCH (17:58)
[2024-10-17] MEDS: HYDROCORTISONE SOD SUCC 100 MG/2ML INJ VIAL IV SCH (17:58)
[2024-10-17 18:36] LABS: BUN/Creatinine Ratio 8.7 (10.0-20.0)
--- NOTE | 2024-10-17 19:09 | DVHPN2 ---
Assessment/Plan Assessment/Plan ICU progress note 54 yo F with cirrhosis recently AMA after found to have anemia. Today Hb 4.4. On my assessment patient with waxing and waning mental status, increased WOB with respiratory muscle use, severe lactic acidosis on increasing pressor support. Patient was intubated for acute hypoxic respiratory failure in the setting of shock, right IJ TLC placed, L radial a line placed. PAdded vasopressin and stress dose steroid, crystalloid resuscitation and transfusion of PRBC. Antibiotic escalated to meropenem and vancomycin. Placed on mechanical ventilator. I have discussion with patient and with brother regarding goals of care. No hematemesis Physical exam Intubated, sedated and mechanically ventilated S1 S2 RRR no murmur Mechanical breath sounds Abdomen soft Trace LE edema LYNN with crusting blood and dark colored stool Labs Hb 4.4 - 5 Lactic acid 7 -> 12 ABG 7.24/19/150 AST ALT trending up Bilirubin 9 Na 151 Cr 1.4 FOBT negative? 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 Continue with mechanical ventilation c/w sedation, keep raas -2 maintain MAP > 65 on levo and vaso stress dose steroid maintain Hb >7 transfuse if necessary FFP after 4 units if requiring more PRBC D5W and bicarb drip at 100cc/hr aggressive fluid resus ISS NPO for now vancomycin and meropenem octreotide and protonix drip panculture GI consult appreciated echo iso shock strict I/O keep K >4 Ph >3 Mg >2 diet hold dvt ppx hold GI ppx protonix prognosis poor condition critical code status full code 120 minutes critical care time excluding POC ultrasound and procedures Plan discussed with: Other My Orders Orders - DANETTE TODD MD Procedure Category Date Status Time Ventilator Orders RT 10/17/24 Transmitted 11:05 Respiratory Culture MEAGAN 10/17/24 In Process W/ Gs 11:05 Abg W/ Co-Ox RT 10/17/24 Logged 12:00 Sodium Chl 0.9% PHA 10/17/24 In Process (So... W/Vasopressin 11:45 Fentanyl Drip PHA 10/17/24 In Process 2500mcg/250mlns 12:15 Rass Sedation Scale RENEE 10/17/24 In Process 12:03 Hydrocortisone PHA 10/17/24 In Process Succinate Inj 18:00 Sodium Chl 0.9% PHA 10/17/24 In Process (Ns... 12:15 Blood Culture MEAGAN 10/17/24 In Process 12:24 Urine Bacterial MEAGAN 10/17/24 In Process Culture 12:24 Insert Rubalcava Catheter RENEE 10/17/24 In Process 12:26 Meropenem 1gm Ivpb PHA 10/17/24 In Process (Merrem 1gm/ Ns) 14:00 Vancomycin Per PHA 10/17/24 In Process Pharmacy 13:00 Vancomycin Per RENEE 10/17/24 In Process Pharmacy Protoc 14:48 D5w 5% (Dextrose 5%) PHA 10/17/24 In Process W/Sodium Bicarb 50m 15:15 Creatinine LAB 10/18/24 Verified 05:00 Vancomycin PHA 10/17/24 In Process 1.25gm/250ml 15:00 Chest Portable XY 10/17/24 Resulted 15:45 Abg W/ Co-Ox RT 10/17/24 Logged 16:24 *Consult CONS 10/17/24 Transmitted / 16:26 Sodium Chloride 0.9% PHA 10/17/24 In Process 18:00 Communication Order ORDERS 10/17/24 Transmitted 18:10 Echo 2d Mode Cardiac US 10/17/24 Transmitted DOP 18:51 Date of Service: Oct 17, 2024 Billing Provider: DANETTE TODD MD Common Visit Codes: 20539-[id number] CARE 30-74 MIN, 41905-[id number] CARE-EACH +30MIN DANETTE TODD MD Oct 17, 2024 19:09
--- NOTE | 2024-10-17 19:11 | DVHNC2 ---
Central Line Recorder of insertion practice: Belt Builder Occupation of inspector publications: Attending Physician Indication: Hypotension Belt Builder performed hand hygien: Yes Maximal sterile barrier precau: Mask/Eye shield, Sterile gown, Cap, Sterlie gloves, Large sterlie drape Skin Preparation: Chlorhexidine gluconate Skin preparation completely dr: Yes Insertion site: Right, Internal jugular Central line catheter type: [id number] dialysis Number of lumens: 3 Post Assessment: Chest X-Ray, Proper placement, No Pneumothorax Date of Service: Oct 17, 2024 Billing Provider: DANETTE TODD MD Cardiology Common Codes: PROCEDURE ONLY DANETTE TODD MD Oct 17, 2024 19:11
[2024-10-17] MEDS: SODIUM CHLORIDE 0.9% 500 ML IV ONE (19:45)
[2024-10-17 19:54] LABS: Base Excess -22.2 mmol/L (-2.0-3.0)
[2024-10-17] MEDS: PHENYLEPHRINE INJ 80 MG in SODIUM CHL 0.9% 242 ML IV SCH (21:19)
[2024-10-17] MEDS: VASOPRESSIN 20 UNIT/ML ONE (21:52)
[2024-10-17 22:32] LABS: Hemoglobin 8.6 g/dL (12.2-16.2)
[2024-10-17 22:33] LABS: Hematocrit 26.7 % (36.0-46.0); Mean Corpuscular Hemoglobin 32.7 pg (28.0-32.0); Mean Corpuscular Hgb Conc. 32.2 g/dL (32.0-36.0); Mean Corpuscular Volume 101.6 fL (80.0-100.0); Platelet Count (auto) 184 10^3/uL (140-450); Red Blood Cells 2.63 10^6/uL (4.0-5.20); Red Cell Distribution Width 16.2 % (11.8-14.3); White Blood Cell 29.8 10^3/uL (4.4-10.8)
[2024-10-17 22:47] LABS: Basophils % (manual) 0 (0.0-2.0); Blast Cells 0; Eosinophils % (manual) 0 (0-7); Myelocytes % 0; Promyelocytes % 0; Reactive Lymphocytes 0
--- NOTE | 2024-10-17 22:47 | DVHINCON2 ---
Date of service: Oct 17, 2024 Referring Physician David Elaine MD Reason for Consultation Vent management History of Present Illness A 54-year-old woman with past medical history of liver cirrhosis, [place], and COVID- 19 who presented to ED on 10/16/24 with complaint of generalized weakness. Shira zarate reported 2 weeks of generalized weakness, abdominal pain, associated nausea and vomiting. Patient was recently admitted at [facility], noted to have hemoglobin of 5.0, underwent blood transfusion; however, left AMA and was unable to complete the transfusion process. The patient was seen and evaluated in the ED. Laboratory data shows WBC 12.0, hemoglobin 4.4, hematocrit 18.4, platelets 282, sodium 138, potassium 3.7, BUN 9, creatinine 0.92, GFR 74, glucose 198, ammonia 15, protein 4.4, albumin 1.8, troponin 5, calcium 7.9, total bilirubin 9.2. AST 108, ALT 51. PT 17.7, INR 1.74. Blood pressure of 87/45 mmHg, trending up to 91/59, heart rate 88, temperature 98.0 F, O2 saturation 99% on oxygen. Abdomen/pelvis CT revealing hepatic steatosis, small amount of pneumobilia, small amount of ascites scattered throughout the abdomen and pelvis. Patient was admitted for further care and pulmonary consultation is requested for evaluation and management of acute hypoxic respiratory failure requiring mechanical vent. Review of Systems: 14-point review of systems negative unless otherwise noted above. Past Medical History: liver cirrhosis, [place], and COVID-19 Past Surgical History: gastric bypass Medications: Reviewed. Allergies: Penicillins Antibiotics* Family History: No family history of premature CAD. No family history of lung disorders. Social History: Nonsmoker. No alcohol or illicit drug use. Allergies: Coded Allergies: Penicillins (Verified Allergy, Unknown, 10/16/24) Uncoded Allergies: ANTIBIOTICS (Allergy, Unknown, 10/16/24) Current Medications Current Medications Medications (Trade) Dose Ordered Sig/Lizette Route PRN Reason Start Time Stop Time Status Last Admin Dexamethasone Sodium Phosphate (Decadron Injection) 6 mg DAILY IV 10/17/24 10:00 10/17/24 16:29 DC Levofloxacin/ Dextrose 100 ml @ 100 mls/hr DAILY IV 10/17/24 10:00 Hold Morphine Sulfate 1 mg Q4HP PRN IV SEVERE PAIN (7-10 PAIN SCALE) 1/12/25 01:45 10/17/24 16:29 DC 10/17/24 01:55 Albuterol (Ventolin Medneb) 2.5 mg Q4HPRN PRN NEB SHORTNESS OF BREATH 10/17/24 02:00 Ipratropium [place] (Atrovent Medneb) 0.5 mg Q4HPRN PRN NEB SHORTNESS OF BREATH 10/17/24 02:00 Norepinephrine Bitartrate 250 ml @ 3.75 mls/hr Q24H IV 10/17/24 04:45 10/17/24 12:33 DC 10/17/24 12:02 Norepinephrine Bitartrate 250 ml @ 3.75 mls/hr Q24H IV 10/17/24 05:00 10/17/24 04:52 DC Vasopressin 20 units/Sodium Chloride 100 ml @ 9 mls/hr Q11H7M IV 10/17/24 11:45 10/17/24 21:51 Fentanyl Citrate 250 ml @ 2.5 mls/hr Q24H IV 10/17/24 12:15 10/17/24 12:19 Hydrocortisone Sodium Succinate (Solu-CORTEF INJECTION) 50 mg Q6HR IV 10/17/24 18:00 10/17/24 17:58 Norepinephrine Bitartrate 32 mg/ Sodium Chloride 250 ml @ 0.938 mls/ hr Q24H IV 10/17/24 12:15 10/17/24 16:19 Octreotide Acetate 500 mcg/ Sodium Chloride 100 ml @ 10 mls/hr Q10H IV 10/17/24 13:00 10/17/24 14:56 Meropenem 50 ml @ 17 mls/hr Q8HR IV 10/17/24 14:00 10/17/24 22:27 Vancomycin HCl 0 ml @ 0 mls/hr UD IV 10/17/24 13:00 Vancomycin HCl 250 ml @ 250 mls/hr DAILY IV 10/17/24 15:00 10/17/24 15:13 DC Sodium Bicarbonate 150 ml/Dextrose 1,150 ml @ 100 mls/hr [id number] IV 10/17/24 15:15 10/17/24 21:02 DC 10/17/24 16:15 Vancomycin HCl 250 ml @ 250 mls/hr DAILY@1500 IV 10/17/24 15:00 10/17/24 17:58 Sodium Bicarbonate 150 ml/Dextrose 1,150 ml @ 200 mls/hr Q5H45M IV 10/17/24 21:00 10/17/24 21:19 Phenylephrine HCl 80 mg/Sodium Chloride 250 ml @ 7.5 mls/hr Q24H IV 10/17/24 21:15 10/17/24 21:19 Vital Signs Vital Signs Date Time Temp Pulse Resp B/P (MAP) Pulse Ox O2 Delivery O2 Flow Rate FiO2 10/17/24 22:00 95.0 111 26 142/39 (73) 97 203.0 90/63 (72) 10/17/24 22:00 30 10/17/24 05:34 Nasal Cannula 6.0 Physical Exam Gen.: Patient lying in bed in medical ICU. Sedated, intubated on mechanical ventilator. Head: Normocephalic, atraumatic. Eyes: PERRLA. Ears: Normal external anatomy. Throat: Endotracheal tube and orogastric tube in place. Neck: Supple, trachea midline. Chest: Transmitted breath sounds bilaterally. Decreased air entry bilaterally. No wheezing. Bibasilar crackles. Cardiovascular: Positive S1, positive S2. Regular rate and rhythm. Abdomen: Positive bowel sounds in all 4 quadrants. Soft, nontender, nondistended. : Rubalcava in place. Normal external genitalia. Rectal: Deferred. Skin: Warm, dry. Intact. Extremities: 2+ radial pulses bilaterally. No lower extremity edema. Neuro: Sedated. Labs/Diagnostic Data Labs Test 10/17/24 22:30 10/17/24 20:18 10/17/24 19:24 10/17/24 17:00 Range/Units White Blood Count 29.8 H 4.4-10.8 10^3/uL Red Blood Count 2.63 L 4.0-5.20 10^6/uL Hemoglobin 8.6 #L 12.2-16.2 g/dL Hematocrit 26.7 #L 36.0-46.0 % Mean Corpuscular Volume 101.6 H 80.0-100.0 fL Mean Corpuscular Hemoglobin 32.7 H 28.0-32.0 pg Mean Corpuscular Hemoglobin Concent 32.2 32.0-36.0 g/dL Red Cell Distribution Width 16.2 H 11.8-14.3 % Platelet Count 184 140-450 10^3/uL Mean Platelet Volume 8.9 6.9-10.8 fL Neutrophils (%) (Auto) 37.0-80.0 % Lymphocytes (%) (Auto) 10.0-50.0 % Monocytes (%) (Auto) 0.0-12.0 % Basophils (%) (Auto) 0.0-2.0 % Neutrophils # (Auto) 1.6-8.6 10 ^3/uL Lymphocytes # (Auto) 0.4-5.4 10 ^3/uL Monocytes # (Auto) 0-1.3 10 ^3/uL Blood Gas Specimen Type Arterial Blood Gas Sample Site Arterial line Blood Gas Patient Temperature 37.0 Arterial Blood Date Drawn Arterial Blood pH 7.041 *L 7.350-7.450 Arterial Blood Partial Pressure CO2 25.4 L 32.0-45.0 mmHg Arterial Blood Partial Pressure O2 96.3 83.0-108.0 mmHg Arterial Blood HCO3 6.7 L 21.0-28.0 mmol/L Arterial Blood Oxygen Saturation 94.8 94.0-98.0 % Arterial Blood Base Excess -22.2 L -2.0-3.0 mmol/L Arterial Blood Oxyhemoglobin 93.3 L 94.0-98.0 % Arterial Blood Carboxyhemoglobin 0.6 0.5-1.5 % Arterial Blood Methemoglobin 1.0 0.0-1.5 % [place] Test N/a Blood Gas Total Hemoglobin 9.00 L 12.0-16.0 g/dL Blood Gas Set Respiration Rate 24.0 Blood Gas Modality Vent - ac Blood Gas Spontaneous Rate 24 FiO2 % 30.0 Blood Gas Tidal Volume 450.0 Blood Gas Spontaneous Tidal Volume 465 Blood Gas Inspiratory Pressure 20.0 Blood Gas PEEP or CPAP 5.0 Bl Gas Inspiratory/Expiratory Ratio 1:2.0 Specimen Drawn By Lloyd becerra pneumatic tool operator Blood Gas Critical Value Read Back Yes Blood Gas Notified Whom Dr. gelacio elaine Blood Gas Notified Time [id number] Blood Gas Notified By Lloyd becerra rcp Sodium Level 150 H 136-145 mmol/L Potassium Level 4.5 3.5-5.1 mmol/L Chloride Level 115 H 98-107 mmol/L Carbon Dioxide Level < 10 *L 20-31 mmol/L Anion Gap 25.75307 H 5-15 Blood Urea Nitrogen 12 9-23 mg/dL Creatinine 1.38 H 0.550-1.02 mg/dL Glomerular Filtration Rate Calc 45 >90 mL/min BUN/Creatinine Ratio 8.7 L 10.0-20.0 Serum Glucose 176 H 74-106 mg/dL Lactic Acid Level 15.5 *H 0.4-2.0 mmol/L Calcium Level 7.8 L 8.7-10.4 mg/dL Test 10/17/24 13:15 10/17/24 03:59 10/17/24 02:16 10/17/24 01:12 Range/Units Anisocytosis (manual) Slight Macrocytosis Slight [place] Cells Few Total Bilirubin 10.6 H 0.2-1.0 mg/dL Aspartate Amino Transferase (AST) 1169 H 13-40 U/L Alanine Aminotransferase (ALT) 207 H 7-40 U/L Alkaline Phosphatase 80 46-116 U/L Creatine Kinase 653 H 34-145 U/L Total Protein 3.7 L 5.7-8.2 g/dL Albumin 1.7 L 3.2-4.8 g/dL Eosinophils (%) (Auto) 0.1 0.0-7.0 % Eosinophils # (Auto) 0 0-0.8 10 ^3/uL Basophils # (Auto) 0.1 0-0.2 10 ^3/uL Nucleated Red Blood Cells 0.0 % Hemoglobin A1c < 3.8 <5.7 % A1C Stool Occult Blood Sample #3 Negative Negative Test 10/16/24 21:23 10/16/24 18:16 Range/Units Troponin I High Sensitivity 4 </=34 ng/L Prothrombin Time 17.7 H 9.3-11.8 sec Prothrombin Time INR 1.74 H 0.9-1.15 Ammonia 15 11-32 umol/L Microbiology Date/Time Source Procedure Growth Status 10/16/24 19:55 Blood Blood Culture - Preliminary NO GROWTH AFTER 24 HOURS OF INCUBATION. 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 Plan: s/p intubation on mechanical ventilator. CXR image and report reviewed. Devices in place. Low lung volumes. Bibasilar subsegmental atelectasis.. ABG reviewed, notable for acidemia. On AC mode; RR 24, VT 450, PEEP 5, FiO2 30% Titrate FIO2 to keep O2 saturation above 90%. VAP bundle. Daily ABG and CXR while intubated Sedate for ventilator synchrony - On Fentanyl Bicarb drip. Continue antibiotics. F/u cultures. On multiple pressors for hemodynamic support Titrate to keep mean arterial pressure greater than 65 mmHg. Monitor renal function Monitor electrolytes. Supplement as necessary. Monitor ins and outs. GI prophylaxis - Protonix DVT prophylaxis. Prognosis: Poor given patient's multiple co-morbidities. Condition: Critical Rest of plan per hospitalist and other consultants. A total of 35 minutes of critical care time was spent reviewing the patient record, examining the patient, making a diagnostic and therapeutic plan, discussing this plan with the medical personnel, following up on diagnostic studies and following the patient for clinical stability excluding any and all procedures. At least 50% of this time was spent in direct, [id number] contact. Thank you, Dr. Elaine, for allowing me to participate in this patient's care. Further recommendations will depend on the patient's clinical course. Please do not hesitate to contact me if you have any questions or concerns. This medical document was created using an electronic medical record system with [employer] dictation system. Although these documentations are being carefully reviewed, there may still be some phonetic and typographical changes. The errors are purely typographical, due to imperfection on the software program, and do not reflect any compromise in the patient's medical care. Plan discussed with: Other (RN/MD Elaine) MILAGROS CRUZ MD Oct 17, 2024 22:47
[2024-10-17 23:15] LABS: Band Neutrophils % (manual) 22; Lymphocytes % (manual) 11 (10.0-50.0); Macrocytosis Slight; Metamyelocytes % 3; Monocytes % (manual) 10 (0-12); Platelet Estimate Adequate
[2024-10-17] MEDS: ALBUMIN 5% 250 ML IV ONE ×2 (23:35→23:39)
[2024-10-17] MEDS: EPINEPHrine HCL 250 ML IV SCH (23:37)
[2024-10-17] MEDS: EPINEPHrine HCL 250 ML IV ONE (23:38)
[2024-10-17] MEDS: SODIUM BICARB 8.4% 50Meq/50ml SYR INJ ONE (23:38)
[2024-10-17] MEDS: ALBUMIN 25% 100 ML IV ONE (23:38)
[2024-10-18] VITALS (105 sets, daily range): BP systolic 30–138; BP diastolic 18–70; PULSE 33–120; RESP 0–34; TEMP 95.9–99.3; O2SAT 30–100
[2024-10-18] MEDS: OCTREOTIDE ACETATE 100 MCG/ML VL ONE (00:02)
[2024-10-18 00:16] LABS: Base Excess -21.1 mmol/L (-2.0-3.0)
[2024-10-18] MEDS: SODIUM BICARB 8.4% 50Meq/50ml SYR Vial IV ONE ×3 (00:40→09:08)
[2024-10-18] MEDS: SODIUM CHLORIDE 0.9% 500 ML IV ONE (01:15)
[2024-10-18 04:32] LABS: Hemoglobin 7.5 g/dL (12.2-16.2); Platelet Count (auto) 176 10^3/uL (140-450)
[2024-10-18 04:38] LABS: Hematocrit 23.9 % (36.0-46.0); Mean Corpuscular Hemoglobin 32.4 pg (28.0-32.0); Mean Corpuscular Hgb Conc. 31.3 g/dL (32.0-36.0); Mean Corpuscular Volume 103.4 fL (80.0-100.0); Red Blood Cells 2.31 10^6/uL (4.0-5.20); Red Cell Distribution Width 16.1 % (11.8-14.3)
[2024-10-18 04:40] LABS: Alkaline Phosphatase 97 U/L (46-116); Anion Gap 32.00001 (5-15); Blood Urea Nitrogen 15 mg/dL (9-23); Magnesium 2.2 mg/dL (1.6-2.6); Potassium 4.2 mmol/L (3.5-5.1)
[2024-10-18 04:57] LABS: BUN/Creatinine Ratio 8.5 (10.0-20.0)
[2024-10-18 05:02] LABS: Carbon Dioxide < 10 mmol/L (20-31); Chloride 110 mmol/L (98-107); Glucose 226 mg/dL (74-106); Sodium 152 mmol/L (136-145)
[2024-10-18 05:03] LABS: Alanine Aminotransferase 751 U/L (7-40); Albumin 1.9 g/dL (3.2-4.8); Bilirubin, Total 12.3 mg/dL (0.2-1.0); Calcium 7.4 mg/dL (8.7-10.4); Phosphorus 10.3 mg/dL (2.4-5.1); Total Protein 3.7 g/dL (5.7-8.2)
[2024-10-18 05:04] LABS: White Blood Cell 30.1 10^3/uL (4.4-10.8)
[2024-10-18 05:06] LABS: Basophils % (manual) 0 (0.0-2.0); Blast Cells 0; Eosinophils % (manual) 0 (0-7); Metamyelocytes % 0; Myelocytes % 0; Promyelocytes % 0; Reactive Lymphocytes 0
--- NOTE | 2024-10-18 05:28 | DVH ---
CHEST RADIOGRAPH Indication: ACUTE RESP FAILURE Technique: Single frontal view of the chest was obtained Comparison: XY CHEST PORTABLE on DOS: 10/17/24 FINDINGS: Lines and Tubes: The endotracheal tube terminates 2.9 cm above the misael. Right central venous francisco ter terminates superior vena cava. The enteric tube courses through a hiatal hernia and terminates in the region of the gastroesophageal junction. Lungs: Left basilar atelectasis. Right lung is clear. Pleura: No effusion. No pneumothorax. Cardiomediastinal contours: Unremarkable Bones: No acute osseous abnormality. IMPRESSION: 1. Enteric tube terminates in the GE junction. Advancement is recommended. 2. Left basilar atelectasis.
[2024-10-18 05:33] LABS: Aspartate Aminotransferase 4609 U/L (13-40)
[2024-10-18 06:01] LABS: Lactic Acid w/Reflex 26.1 mmol/L (0.4-2.0)
[2024-10-18 07:25] LABS: Band Neutrophils % (manual) 7; Lymphocytes % (manual) 16 (10.0-50.0); Monocytes % (manual) 4 (0-12)
[2024-10-18 07:26] LABS: Macrocytosis Slight
[2024-10-18 07:31] LABS: Platelet Estimate Adequate
[2024-10-18 08:20] LABS: Base Excess -23.5 mmol/L (-2.0-3.0)
[2024-10-18] MEDS: LACTATED RINGER'S 1,000 ML IV ONE ×2 (09:13→12:00)
--- NOTE | 2024-10-18 10:20 | DVH ---
CHEST RADIOGRAPH Indication: S/P CODE BLUE INTUBATION Technique: Single frontal view of the chest was obtained COMPARISON: XY CHEST XRAY 1 VIEW on DOS: 10/18/24, XY CHEST PORTABLE on DOS: 10/17/24, XY CHEST XRAY 1 VIEW on DOS: 10/17/24, XY CHEST PORTABLE on DOS: 10/16/24 FINDINGS: Lines and Tubes: Endotracheal tube and enteric catheter in satisfactory position. Right central venou s catheter in satisfactory position. Lungs: Low lung volumes. Pleura: No effusion. No pneumothorax. Cardiomediastinal contours: Unremarkable Bones: Unremarkable IMPRESSION: Lines and tubes in satisfactory position.
[2024-10-18 10:37] LABS: Base Excess -17.1 mmol/L (-2.0-3.0)
--- NOTE | 2024-10-18 10:38 | RESUS ---
JI ELY ASSESSSMENT History of Events History of Events: Patient currently ICU admit on ventalitor Primary RN reports change in arterial line waveform, no palpable pulse detected with PEA noted on bedside profile mill operator tape control CODE BLUE called and CPR initiated Initial Information Date: Oct 18, 2024 Time: 09:41 Location of Arrest: ICU ([place]) Arrest Witnessed: Yes CPR started initial time: 09:41 CPR started by whom: Hospital Staff Type of arrest: Cardiac Spontaneous Respirations: No Pulse Present: No Crash Cart Opened and Supplies: Yes Airway Ventilation Breathing at Onset: Assisted Oxygen Delivery Method: Mechanical Ventilator Artificial Ventilation: Bag/Endo tube Comments: patient intubated prior to code Circulation Circulation : Time: 09:43 Pulse Rate (adult): 110 Blood Pressure Systolic: 135 Blood Pressure Diastolic: 78 Medications & Response Medications and Responses #1: Medication Time: 09:42 ADULT Medications Given ADULT: Epinephrine 1 mg Route of Administration: IV EKG Rhythm: PEA Medications and Responses #2: Medication Time: 09:44 ADULT Medications Given ADULT: Sodium Bacarbinate 50 meq Route of Administration: IV EKG Rhythm: Sinus Tachycardia Blood Pressure Systolic: 135 Blood Pressure Diastolic: 78 Respiratory Rate: 16 O2 Sat by Pulse Oximetry: 96 Procedure - Central Venous Cat Comment: placed prior to code Nurses Notes [place] Coma Scale Eye Opening: None (1) Chris Coma Scale Verbal: None (1) Chris Coma Scale Motor: None (1) Pupil Reaction: Sluggish Bedside Blood Glucose: 188 EKG Rhythm: Sinus Tachycardia Time Code Ended Time Code Ended: 09:43 Post Arrest Status: Ventilated Outcome of code: Successful Code Team Present: Dr Bishnu Carroll EMT student RT Angie Baeza ROSC Time of ROSC: 09:43 Felisha Orourke Oct 18, 2024 10:38
[2024-10-18 10:42] LABS: Basophils # (auto) 0.1 10 ^3/uL (0-0.2)
[2024-10-18 10:50] LABS: Basophils % (auto) 0.4 % (0.0-2.0); Eosinophils # (auto) 0 10 ^3/uL (0-0.8); Eosinophils % (auto) 0.1 % (0.0-7.0); Hematocrit 18.2 % (36.0-46.0); Lymphocytes # (auto) 1.9 10 ^3/uL (0.4-5.4); Lymphocytes % (auto) 8.7 % (10.0-50.0); Mean Corpuscular Hemoglobin 33.3 pg (28.0-32.0); Mean Corpuscular Hgb Conc. 32.9 g/dL (32.0-36.0); Mean Corpuscular Volume 101.3 fL (80.0-100.0); Monocytes # (auto) 1.3 10 ^3/uL (0-1.3); Monocytes % (auto) 5.7 % (0.0-12.0); Neutrophils # (auto) 19.1 10 ^3/uL (1.6-8.6); Neutrophils % (auto) 85.1 % (37.0-80.0); Platelet Count (auto) 135 10^3/uL (140-450); Red Cell Distribution Width 16.8 % (11.8-14.3); White Blood Cell 22.4 10^3/uL (4.4-10.8)
--- NOTE | 2024-10-18 10:55 | ECG ---
[facility] [place] Test Date: 2024-10-16 Test Time: 19:36:27 Pat Name: VALENTINO COWAN Department: ER Room: [address] [place] [address] A Gender: F Manager Education: ASA : 1970 Requested By: ALMA VILLEGAS Order Number: [id number] Reading MD: Brad Elliott Measurements Intervals [place] Rate: 94 P: 51 [place]: 141 QRS: -1 QRSD: 93 T: 35 QT: 393 QTc: 492 Interpretive Statements Sinus rhythm Low voltage, precordial leads Abnormal R-wave progression, early transition Borderline prolonged QT interval Electronically Signed On 10-24-2024 14:48:47 PST by Brad Elliott Please click the below link to view image of tracing.
--- NOTE | 2024-10-18 10:56 | ECG ---
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
--- NOTE | 2024-10-18 10:56 | ECG ---
[facility] Test Date: 2024-10-16 Test Time: 21:34:33 Pat Name: VALENTINO COWAN Department: ER Room: [address] [place] [address] Gender: F Abstract Writer: ASA : 1970 Requested By: ALMA VILLEGAS Order Number: [id number] Reading MD: Brad Elliott Measurements Intervals [place] Rate: 87 P: 58 [place]: 146 QRS: -7 QRSD: 74 T: 57 QT: 439 QTc: 528 Interpretive Statements Sinus rhythm Anterior infarct, old Repol abnrm suggests ischemia, lateral leads Prolonged QT interval Electronically Signed On 10-24-2024 14:50:21 PST by Brad Elliott Please click the below link to view image of tracing.
[2024-10-18 11:05] LABS: Basophils % (manual) 0 (0.0-2.0); Blast Cells 0; Eosinophils % (manual) 0 (0-7); Metamyelocytes % 0; Myelocytes % 0; Promyelocytes % 0; Reactive Lymphocytes 0
[2024-10-18 11:18] LABS: Alkaline Phosphatase 113 U/L (46-116); Anion Gap 35 (5-15); Blood Urea Nitrogen 15 mg/dL (9-23)
[2024-10-18 11:26] LABS: Alanine Aminotransferase 798 U/L (7-40); Albumin 1.4 g/dL (3.2-4.8); Bilirubin, Total 9.6 mg/dL (0.2-1.0); Calcium 6.6 mg/dL (8.7-10.4); Carbon Dioxide 11 mmol/L (20-31); Chloride 108 mmol/L (98-107); Glucose 223 mg/dL (74-106); Sodium 154 mmol/L (136-145); Total Protein 2.7 g/dL (5.7-8.2)
[2024-10-18 11:49] LABS: Aspartate Aminotransferase 5449 U/L (13-40)
[2024-10-18 11:51] LABS: BUN/Creatinine Ratio 7.2 (10.0-20.0)
[2024-10-18 11:54] LABS: Band Neutrophils % (manual) 24; Lymphocytes % (manual) 10 (10.0-50.0); Monocytes % (manual) 8 (0-12); Platelet Estimate Adequate
[2024-10-18] MEDS ORDERED: SODIUM BICARB 8.4% 50Meq/50ml SYR Vial IV SCH (12:00)
--- NOTE | 2024-10-18 12:44 | DVHSR ---
APPROVED REPORT EXAM: Two-dimensional and M-mode echocardiogram with Doppler and color Doppler. Blood Pressure: 94/35 mmHg INDICATION Shock RISK FACTORS Height: 5'4", Weight: 189 DIMENSIONS LVDd4.1 (3.8-5.7cm)LA (2D) (1.9-4.0cm)Aortic Root (2.0-3.7cm) LVDs2.7 (2.5-4.0cm)LA (MM) (1.9-4.0cm)Aortic Cusp Exc (1.5-2.0cm) EF (%) 62.0 (55-70%)Rt. Atrium (1.9-4.0cm)Asc. Aorta cm IVSd0.9 (0.7-1.1cm)RV (D) (1.8-2.4cm) Mitral Valve MitralMitral Stenosis E/A ratio0.02D MVAcm2 Aortic Valve Aortic ValveAortic Stenosis LVOT Diameter2.0 (1.8-2.4cm)Doppler AVAcm2 LEFT VENTRICLE Normal left ventricular size. Wall thickness is normal. Ejection fraction is normal and is estimate d at 60%. No regional wall motion abnormalities. Diastolic function is not well assessed. RIGHT VENTRICLE Not well visualized. Likely of normal size and systolic function. ATRIA Left atrium is of normal size. Right atrium is not well visualized. MITRAL VALVE Normal structure and function. No significant mitral regurgitation. PULMONIC VALVE Not visualized. TRICUSPID VALVE Not well visualized. PA systolic pressure is not adequately estimated. AORTIC VALVE Normal structure and function. GREAT VESSELS Aortic root is of normal size. Proximal ascending aorta is not visualized. PERICARDIAL EFFUSION No pericardial effusion. IVC is not well visualized. Other Information Quality : Technically LimitedRhythm : Technically limited study due to body habitus, patient position and on vent. Conclusion Study is technically limited. Normal left ventricular size and systolic function. Ejection fraction is estimated at 60%. Right ventricle is of likely normal size and systolic function. No evidence of pericardial effusion. PA systolic pressure is not adequately estimated.
[2024-10-18] MEDS ORDERED: SODIUM BICARB 8.4% 50Meq/50ml SYR Vial IV ONE (14:00)
[2024-10-18] MEDS: SODIUM BICARB 8.4% 50Meq/50ml SYR Vial IV SCH (14:06)
[2024-10-18] MEDS: EPINEPHrine HCL INJECTION 16 MG in D5W 5% 234 ML IV SCH (15:33)
--- NOTE | 2024-10-18 16:18 | DVHPN2 ---
Assessment/Plan Assessment/Plan ICU progress note 54 yo F with cirrhosis recently AMA after found to have anemia. Today Hb 4.4. On my assessment patient with waxing and waning mental status, increased WOB with respiratory muscle use, severe lactic acidosis on increasing pressor support. Patient was intubated for acute hypoxic respiratory failure in the setting of shock, right IJ TLC placed, L radial a line placed. PAdded vasopressin and stress dose steroid, crystalloid resuscitation and transfusion of PRBC. Antibiotic escalated to meropenem and vancomycin. Placed on mechanical ventilator. I have discussion with patient and with brother regarding goals of care. No hematemesis Seen by me today during rounds, overnight crashed and requires addition of 4 pressors, worsening lactic acidosis. in the morning patient with PEA arrest, 1 round of CPR plus epi with rosc, downtime 3 minutes. After ROSC patient persistently having low map and saturation despite pressors. Discussion with family held again, informed that patient is actively resuscitated. 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 POCUS echo with hyperdynamic heart, unable to visualize IVC. Physical exam Intubated, sedated and mechanically ventilated S1 S2 RRR no murmur Mechanical breath sounds Abdomen distended melena seen in bed Trace LE edema Labs Hb 4.4 - 5 Lactic acid 7 -> 12 ABG 7.24/19/150 AST ALT trending up Bilirubin 9 Na 151 Cr 1.4 FOBT negative? 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 Lactic acidosis HAGMA Hypernatremia Shock liver Continue with mechanical ventilation sedation for vent synchrony maintain MAP > 65 on levo vaso epi and phenyl stress dose steroid maintain Hb >7 transfuse if necessary FFP after 4 units if requiring more PRBC D5W and bicarb drip at 200cc/hr and picarb push q6hr aggressive fluid resus ISS NPO for now vancomycin and meropenem octreotide and protonix drip panculture GI consult appreciated echo iso shock strict I/O keep K >4 Ph >3 Mg >2 diet hold dvt ppx hold GI ppx protonix prognosis poor condition critical code status full code 120 minutes critical care time excluding POC ultrasound, codes and procedures Plan discussed with: Other My Orders Orders - DANETTE TODD MD Procedure Category Date Status Time Abg W/ Co-Ox RT 10/17/24 Logged 16:24 *Consult CONS 10/17/24 Transmitted / 16:26 Communication Order ORDERS 10/17/24 Transmitted 18:10 Abg W/ Co-Ox RT 10/17/24 Logged 19:09 Ventilator Orders RT 10/18/24 Transmitted 04:34 Chest Xray 1 View XY 10/18/24 Resulted 05:09 Abg W/ Co-Ox RT 10/18/24 Logged 05:21 Echo 2d Mode Cardiac US 10/18/24 Resulted DOP 18:51 Acute Ab Series XY 10/18/24 Logged 10:44 Communication Order ORDERS 10/18/24 Transmitted 10:00 Basic Metabolic Panel LAB 10/19/24 Verified 04:00 Vancomycin,Random LAB 10/19/24 Verified 04:00 Vancomycin Per RENEE 10/18/24 In Process Pharmacy Protoc 13:37 D5w 5% (Dextrose 5%) PHA 10/18/24 In Process W/Epinephrine Hcl I 14:00 Sodium Bicarb PHA 10/18/24 In Process 50meq/50ml Vial 14:01 Date of Service: Oct 18, 2024 Billing Provider: DAENTTE TODD MD Common Visit Codes: 74109-[id number] CARE 30-74 MIN, 88812-[id number] CARE-EACH +30MIN DANETTE TODD MD Oct 18, 2024 16:18
[2024-10-18 17:06] LABS: Hematocrit 27.4 % (36.0-46.0)
[2024-10-18] MEDS: ALBUMIN 25% 100 ML IV ONE (17:27)
--- NOTE | 2024-10-18 23:48 | DVHPN2 ---
Progress Note - Dictate Date Seen: Oct 18, 2024 Medical Necessity Reason Pt with a Central, PICC or Fol: Yes The following are medically ne: Groves Catheter Reason for groves catheter: Strict I&O Subjective Patient seen and examined at bedside. Sedated, intubated on mechanical ventilator. Overnight events reviewed. vital signs Vital Sign Date Time Temp Pulse Resp B/P (MAP) Pulse Ox O2 Delivery O2 Flow Rate FiO2 10/18/24 23:15 97.5 108 28 73/64 (67) 49 207.5 10/18/24 22:00 100 10/18/24 22:00 Mechanical Ventilator+ 10/17/24 20:00 0 Total Intake and Output 10/17/24 10/17/24 10/18/24 15:00 23:00 07:00 Intake Total 747.335 ml 1856.3345 ml 2558.913 ml Output Total 200 ml 120 ml Balance 747.335 ml 1656.3345 ml 2438.913 ml medications Current Medications Medications Dose Ordered Sig/Lizette Route Start Time Stop Time Status Last Admin Dose Admin Levofloxacin/ Dextrose 100 ml @ 100 mls/hr DAILY IV 10/17/24 10:00 Hold Fentanyl Citrate 250 ml @ 2.5 mls/hr Q24H IV 10/17/24 12:15 10/17/24 12:19 2.5 MLS/HR objective Gen.: Patient lying in bed in medical ICU. Sedated, intubated on mechanical ventilator. Head: Normocephalic, atraumatic. Eyes: PERRLA. Ears: Normal external anatomy. Throat: Endotracheal tube and orogastric tube in place. Neck: Supple, trachea midline. Chest: Transmitted breath sounds bilaterally. Decreased air entry bilaterally. No wheezing. Bibasilar crackles. Cardiovascular: Positive S1, positive S2. Regular rate and rhythm. Abdomen: Positive bowel sounds in all 4 quadrants. Soft, nontender, nondistended. : Groves in place. Normal external genitalia. Rectal: Deferred. Skin: Warm, dry. Intact. Extremities: 2+ radial pulses bilaterally. No lower extremity edema. Neuro: Sedated. 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 Events: Remains on vent support On AC mode; RR 24 -->28, VT 450, PEEP 5 -->15, FiO2 30 -->100% ABG reviewed, notable for severe acidemia. CXR at 0509 hours reviewed, demonstrates left basilar atelectasis. Devices in place. On multiple pressors for hemodynamic support Levophed 60 mcg/min, North-Synephrine 180 mcg/min, epinephrine 25 mcg/min and vasopressin 0.05 units/min Titrate to keep MAP above 65 mmHg/SBP above 90 mmHg Bicarb drip + 1 amp bicarb Albumin Sandostatin drip Monitor hemoglobin Monitor renal function Poor UOP Overall poor prognosis - high likelihood of demise. Labs and imaging reviewed. Rest of plan as noted below. Plan: s/p intubation on mechanical ventilator. On AC mode; RR 28, VT 450, PEEP 15, FiO2 100% Titrate FIO2 to keep O2 saturation above 90%. VAP bundle. Daily ABG and CXR while intubated Sedated for ventilator synchrony Bicarb drip. Continue antibiotics. F/u cultures. On multiple pressors for hemodynamic support Titrate to keep mean arterial pressure greater than 65 mmHg. Monitor renal function Monitor electrolytes. Supplement as necessary. Monitor ins and outs. GI prophylaxis - Protonix DVT prophylaxis. Prognosis: Poor given patient's multiple co-morbidities. Condition: Critical Rest of plan per hospitalist and other consultants. A total of 35 minutes of critical care time was spent reviewing the patient record, examining the patient, making a diagnostic and therapeutic plan, discussing this plan with the medical personnel, following up on diagnostic studies and following the patient for clinical stability excluding any and all procedures. At least 50% of this time was spent in direct, [id number] contact. Thank you, Dr. Goetz, for allowing me to participate in this patient's care. Further recommendations will depend on the patient's clinical course. Please do not hesitate to contact me if you have any questions or concerns. This medical document was created using an electronic medical record system with [employer] dictation system. Although these documentations are being carefully reviewed, there may still be some phonetic and typographical changes. The errors are purely typographical, due to imperfection on the software program, and do not reflect any compromise in the patient's medical care. Plan discussed with: Other (JOSE ANGEL Carroll) Critical Care Time(min): 35 CC Plasma Assessment Blood Product Administration S: [id number] MILAGROS CRUZ MD Oct 18, 2024 23:48
--- NOTE | 2024-10-21 12:51 | ECG ---
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
== END 2024-10-18 23:58 | DRG 720 ==
LOC: ER 17:55 → EDBD 17:55 → TELE 21:26 → ICU WEST 10-17 18:30
PROVIDERS: ADMIT Internal Medicine; ATTEND Internal Medicine
PROC: 30233N1 Transfusion of Nonautologous Red Blood Cells into Peripheral Vein, Percutaneous Approach (ICD-10-PCS; 2024-10-16)
PROC: 5A1945Z Respiratory Ventilation, 24-96 Consecutive Hours (ICD-10-PCS; principal; 2024-10-17)
PROC: 03HY32Z Insertion of Monitoring Device into Upper Artery, Percutaneous Approach (ICD-10-PCS; 2024-10-17)
PROC: 02HV33Z Insertion of Infusion Device into Superior Vena Cava, Percutaneous Approach (ICD-10-PCS; 2024-10-17)
PROC: 0BH17EZ Insertion of Endotracheal Airway into Trachea, Via Natural or Artificial Opening (ICD-10-PCS; 2024-10-17)
PROC: 5A12012 Performance of Cardiac Output, Single, Manual (ICD-10-PCS; 2024-10-18)
DX: A41.9 Sepsis, unspecified organism (principal); J96.01 Acute respiratory failure with hypoxia; K72.00 Acute and subacute hepatic failure without coma; R65.21 Severe sepsis with septic shock; G93.41 Metabolic encephalopathy; K92.0 Hematemesis; N18.6 End stage renal disease; E87.0 Hyperosmolality and hypernatremia; E87.20 Acidosis, unspecified; D53.1 Other megaloblastic anemias, not elsewhere classified; I46.9 Cardiac arrest, cause unspecified; D62 Acute posthemorrhagic anemia; K76.82 Hepatic encephalopathy; K76.0 Fatty (change of) liver, not elsewhere classified; R73.9 Hyperglycemia, unspecified; K74.60 Unspecified cirrhosis of liver; R18.8 Other ascites; Z59.00 Homelessness unspecified; Z88.0 Allergy status to penicillin; Z98.84 Bariatric surgery status; I25.2 Old myocardial infarction
CPT/HCPCS: 36415; 36556; 36600; 71045; 74176; 80048; 80053; 80202; 82140; 82270; 82550; 82805; 82962; 83036; 83605; 83735; 84100; 84484; 85007; 85014; 85018; 85025; 85027; 85610; 86850; 86900; 86901; 86920; 87040; 87070; 87077; 87081; 87086; 87088; 87186; 87205; 93005; 93306; 94002; 94003; 96365; 96375; 99291; G0378; J0171; J1100; J1815; J2185; J2405; J2470; J7060; P9047